=== PATIENT | female | born 1985 | race Caucasian/White ===

== ENCOUNTER 2018-09-18 19:09 | Emergency (ER) | payer MEDICAID ==
[~2018-09-18] VITALS: Ht 162.6 cm; Wt 74.8 kg
[2018-09-18 19:19] VITALS: BP 133/105
[2018-09-18 19:43] LABS: BASOPHILS # (AUTO) 0.1 X10'3 (0-0.2); BASOPHILS % (AUTO) 0.5 % (0-1); EOSINOPHILS # (AUTO) 0.3 X10'3 (0-0.9); HEMATOCRIT 42.6 % (35.0-45.0); HEMOGLOBIN 14.1 g/dl (12.0-16.0); LYMPHOCYTES # (AUTO) 3.1 X10'3 (1.1-4.8); LYMPHOCYTES % (AUTO) 28.4 % (21-51); MEAN CORPUSCULAR HEMOGLOBIN 31.3 PG (27.0-31.0); MEAN CORPUSCULAR HGB CONC 33.2 g/dL (33.0-36.5); MEAN CORPUSCULAR VOLUME 94.5 FL (78-98); MEAN PLATELET VOLUME 9.2 FL (7.4-10.4); MONOCYTES # (AUTO) 1.1 X10'3 (0-0.9); MONOCYTES % (AUTO) 10.2 % (2-12); NEUTROPHILS # (AUTO) 6.3 X10'3 (1.8-7.7); NEUTROPHILS % (AUTO) 57.9 % (42-75); PLATELET COUNT 312 X10'3 (140-440); RED BLOOD COUNT 4.51 X10'6 (4.20-5.60); RED CELL DISTRIBUTION WIDTH 13.4 % (11.5-14.5); WHITE BLOOD COUNT 10.8 X10'3 (4.5-11.0)
[2018-09-18] MEDS ORDERED: ibuprofen tablet 400 MG TABLET PO ONE (19:45)
[2018-09-18] MEDS ORDERED: ibuprofen 200mg tablet PO ONE (19:50)
[2018-09-18 19:57] LABS: ALANINE AMINOTRANSFERASE 53 U/L (12-78); ALBUMIN 3.6 G/DL (3.4-5.0); ALKALINE PHOSPHATASE 87 IU/L (46-116); ANION GAP 5 (8-16); ASPARTATE AMINO TRANSFERASE 40 U/L (10-37); BILIRUBIN,TOTAL 0.3 MG/DL (0.1-1.0); BLOOD UREA NITROGEN 16 MG/DL (7-18); BUN/CREATININE RATIO 22.2 (6.6-38.0); CALCIUM 8.9 MG/DL (8.5-10.1); CHLORIDE 105 MMOL/L (99-107); CREATININE 0.72 MG/DL (0.40-0.90); GLUCOSE 82 MG/DL (70-104); POTASSIUM 4.3 MMOL/L (3.5-5.1); SODIUM 141 MMOL/L (135-145); TOTAL CARBON DIOXIDE 31.2 MMOL/L (24-32); TOTAL PROTEIN 7.1 G/DL (6.4-8.2); eGFR > 90 ML/MIN
[2018-09-18] MEDS ORDERED: HYDR-4383 PO (20:05)
[2018-09-18] MEDS ORDERED: HYDR-3965 PO (20:05)
== END 2018-09-18 20:30 | disposition home or self-care (01) ==
LOC: ER 19:09
DX: I73.00 Raynaud's syndrome without gangrene (principal); M25.539 Pain in unspecified wrist; F17.210 Nicotine dependence, cigarettes, uncomplicated; Z79.899 Other long term (current) drug therapy
CPT/HCPCS: 36415; 80053; 85025; 99283

== ENCOUNTER 2024-01-31 02:38 | Inpatient (IN) | payer MEDICAID ==
[~2024-01-31] VITALS: Ht 167.6 cm; Wt 66.8 kg
[~2024-01-31 02:38] MED LIST: HYDR-4383 PO
[2024-01-31 03:16] LABS: BASOPHILS # (AUTO) 0.1 X10'3 (0-0.2); BASOPHILS % (AUTO) 0.2 % (0-1); EOSINOPHILS % (AUTO) 0.1 % (0-6); HEMATOCRIT 43.4 % (35.0-45.0); HEMOGLOBIN 14.5 g/dl (12.0-16.0); LYMPHOCYTES % (AUTO) 3.9 % (21-51); MEAN CORPUSCULAR HEMOGLOBIN 31.5 PG (27.0-31.0); MEAN CORPUSCULAR HGB CONC 33.4 g/dL (33.0-36.5); MEAN CORPUSCULAR VOLUME 94.3 FL (78-98); MEAN PLATELET VOLUME 9.9 FL (7.4-10.4); MONOCYTES # (AUTO) 1.6 X10'3 (0-0.9); MONOCYTES % (AUTO) 6.3 % (2-12); NEUTROPHILS # (AUTO) 22.8 X10'3 (1.8-7.7); NEUTROPHILS % (AUTO) 89.5 % (42-75); PLATELET COUNT 224 X10'3 (140-440); RED CELL DISTRIBUTION WIDTH 14.1 % (11.5-14.5)
[2024-01-31] MEDS: normal saline 1000ML IV soln IVB ONE (03:17)
[2024-01-31 03:19] LABS: WHITE BLOOD COUNT 25.4 X10'3 (4.5-11.0)
[2024-01-31] MEDS: acetaminophen 1,000mg/100ml IV 100 ML IV ONE (03:24)
[2024-01-31 03:26] LABS: ALBUMIN 2.9 G/DL (3.4-5.0); ANION GAP 8 (8-16); BLOOD UREA NITROGEN 9 MG/DL (7-18); CALCIUM 9.1 MG/DL (8.5-10.1); CHLORIDE 98 MMOL/L (99-107); GLUCOSE 144 MG/DL (70-104); SODIUM 130 MMOL/L (135-145); TOTAL CARBON DIOXIDE 23.7 MMOL/L (24-32); eCRCL 64 ML/MIN; eGFR 62 ML/MIN
[2024-01-31 03:32] LABS: HCG SERUM QL NEGATIVE
[2024-01-31 03:35] LABS: POTASSIUM 4.4 MMOL/L (3.5-5.1)
[2024-01-31 03:38] LABS: TOTAL CELLS COUNTED 100
[2024-01-31 03:39] LABS: TOXIC VACUOLATION FEW
[2024-01-31 03:58] LABS: BILIRUBIN,URINE NEGATIVE (Neg); CLARITY,URINE CLOUDY (Clear); COLOR,URINE YELLOW (Yellow); GLUCOSE, URINE 100 mg/dl (Neg); KETONES,URINE NEGATIVE (Neg); LEUKOCYTE ESTERASE ,URINE SMALL (Neg); NITRITES, URINE NEGATIVE (Neg); OCCULT BLOOD,URINE SMALL (Neg); PROTEIN,URINE >=300 mg/dl (Neg)
[2024-01-31 04:01] LABS: UA COLLECTION TYPE CLN CATCH MIDSTREAM
[2024-01-31 04:04] LABS: BACTERIA,URINE 2+ /HPF (Neg); SQUAMOUS EPITHELIAL CELL,UR FEW /LPF (FEW); WBC,URINE TNTC /HPF (0-4)
[2024-01-31] MEDS ORDERED: iohexol 300mg/ml 100ml inj. ONE (04:25)
[2024-01-31 04:27] LABS: URINE AMPHETAMINE SCREEN POSITIVE (Neg); URINE BARBITUATE SCREEN NEGATIVE (Neg); URINE BENZODIAZEPINES SCREEN NEGATIVE (Neg); URINE CANNABINOID SCREEN POSITIVE (Neg); URINE COCAINE SCREEN NEGATIVE (Neg); URINE METHADONE SCREEN NEGATIVE (Neg); URINE OPIATE SCREEN NEGATIVE (Neg); URINE PHENCYCLIDINE SCREEN NEGATIVE (Neg)
[2024-01-31] MEDS: piperacillin/tazo 3.375gm/50ml 50 ML IV ONE (04:36)
[2024-01-31] MEDS: metroNIDAZOLE-Flagyl 500mg/NS 100 ML IV ONE (04:41)
[2024-01-31] MEDS: CefTRIAXone/D5W-Rocephin 1gm 50 ML IV ONE (04:42)
[2024-01-31] MEDS: doxycycline inj 200 MG in normal saline 250ml IV soln 250 ML IV ONE (05:15)
[2024-01-31] MEDS ORDERED: NO HOME MEDS (05:38)
[2024-01-31] MEDS ORDERED: ondansetron/PF 4mg/2ml inj IV PRN (06:00)
[2024-01-31] MEDS: ringers solution, lacted 1,000 ML IV SCH (06:13)
[2024-01-31] MEDS: acetaminophen 325mg tablet PO PRN ×2 (08:28→17:47)
[2024-01-31] MEDS: enoxaparin 40mg/0.4ml syringe SUBCUT SCH (08:28)
[2024-01-31 09:27] VITALS: BP 141/85; PULSE 146; RESP 17; TEMP 98.9; O2SAT 98
[2024-01-31 09:30] VITALS: RESP 17; O2SAT 98
[2024-01-31 09:40] VITALS: PULSE 135
[2024-01-31 09:55] VITALS: PULSE 108
[2024-01-31 10:33] VITALS: RESP 16
[2024-01-31] MEDS: HYDROcodone/acetaminophen 5mg/325mg tablet PO ONE (10:33)
[2024-01-31] MEDS ORDERED: PERFLUTREN PROTEIN-A MICROSPHR (Optison) 0.22 MG/ML 3ML VIAL IV ONE (11:30)
[2024-01-31 13:01] LABS: BASOPHILS % (AUTO) 0.1 % (0-1); EOSINOPHILS % (AUTO) 0.1 % (0-6); HEMATOCRIT 38.3 % (35.0-45.0); HEMOGLOBIN 12.8 g/dl (12.0-16.0); LYMPHOCYTES # (AUTO) 0.8 X10'3 (1.1-4.8); LYMPHOCYTES % (AUTO) 4.2 % (21-51); MEAN CORPUSCULAR HEMOGLOBIN 31.8 PG (27.0-31.0); MEAN CORPUSCULAR HGB CONC 33.3 g/dL (33.0-36.5); MEAN CORPUSCULAR VOLUME 95.5 FL (78-98); MEAN PLATELET VOLUME 9.2 FL (7.4-10.4); MONOCYTES # (AUTO) 1.3 X10'3 (0-0.9); MONOCYTES % (AUTO) 6.6 % (2-12); NEUTROPHILS # (AUTO) 17.9 X10'3 (1.8-7.7); PLATELET COUNT 186 X10'3 (140-440); RED BLOOD COUNT 4.01 X10'6 (4.20-5.60); RED CELL DISTRIBUTION WIDTH 13.7 % (11.5-14.5); WHITE BLOOD COUNT 20.1 X10'3 (4.5-11.0)
[2024-01-31] MEDS: normal saline 1000ml 1,000 ML IV SCH (13:49)
[2024-01-31] MEDS: carVEDilol 3.125mg tablet PO SCH (17:47)
[2024-02-01] MEDS ORDERED: CefTRIAXone/D5W-Rocephin 1gm 50 ML IV SCH (08:00)
[2024-02-02 19:07] LABS: CHLAMYDIA TRACHOMATIS, NAA Negative (Negative)
== END 2024-01-31 19:08 | disposition left against medical advice (07) | DRG 720 ==
LOC: ER 02:39 → ED HOLD 06:02 → SUR 3N 09:29 → PCU 3S 14:19
PROVIDERS: ADMIT Internal Medicine; ATTEND Internal Medicine
PROC: BW211ZZ Computerized Tomography (CT Scan) of Abdomen and Pelvis using Low Osmolar Contrast (ICD-10-PCS; principal; 2024-01-31)
DX: A41.9 Sepsis, unspecified organism (principal); E87.1 Hypo-osmolality and hyponatremia; N12 Tubulo-interstitial nephritis, not specified as acute or chronic; N73.9 Female pelvic inflammatory disease, unspecified; J31.0 Chronic rhinitis; Z53.29 Procedure and treatment not carried out because of patient's decision for other reasons; F90.9 Attention-deficit hyperactivity disorder, unspecified type
CPT/HCPCS: 36415; 71045; 74018; 74177; 80048; 80305; 81001; 83605; 84145; 84703; 85007; 85025; 85651; 87040; 87077; 87081; 87088; 87186; 87210; 87491; 93005; 93306; 99291; G0378; J0131; J0696; J1650; J2543; J3490; J7030; J7050; J7120; Q9967